=== PATIENT | male | born 1970 | race American Indian/Alaskan Native ===

== ENCOUNTER 2020-08-17 20:10 | Emergency (ER) | payer SELFPAY ==
[2020-08-18 00:34] VITALS: BP 142/83
== END 2020-08-18 03:00 | disposition left against medical advice (07) ==
LOC: ED 20:10
DX: Z04.1 Encounter for examination and observation following transport accident (principal); Z53.21 Procedure and treatment not carried out due to patient leaving prior to being seen by health care provider

== ENCOUNTER 2021-06-29 12:20 | Emergency (ER) | payer SELFPAY ==
[2021-06-29] MEDS ORDERED: ACETAMINOPHEN 325 MG TAB PO ONE (14:44)
[2021-06-29 14:57] VITALS: BP 139/84
--- NOTE | 2021-06-29 14:59 | Emergency Department Report ---
- General Chief Complaint: Weakness Stated Complaint: COLD SX Time Seen by Provider: 06/29/21 14:32 Source: patient Mode of arrival: Ambulatory Limitations: No Limitations - History of Present Illness Initial Comments: Patient is a 50-year-old male presents emergency room complaints of a cough that began 4 days ago. He states it is a persistent dry cough. He has associated shortness of breath, chest tightness, no appetite, generalized weakness, body aches. He denies any fever at home but does have a fever in the emergency room. He denies any vomiting, diarrhea, pleuritic pain, sore throat, ear pain, leg swelling. He has not been vaccinated for COVID-19. He has not been tested since becoming sick. No past medical history. Allergy to penicillin. He is a never smoker. He denies any known sick contacts or recent travel. - Related Data Previous Rx's Medication Instructions Recorded Last Taken Type Azithromycin [Zithromax TAB] 250 mg PO QDAY 5 Days #6 tablet 06/29/21 Unknown Rx Benzonatate [Tessalon Perles] 100 mg PO Q8HR PRN #12 capsule 06/29/21 Unknown Rx Dexamethasone 6 mg PO DAILY 10 Days #10 tab 06/29/21 Unknown Rx Allergies Allergy/AdvReac Type Severity Reaction Status Date / Time Penicillins Allergy Anaphylaxis Verified 06/29/21 12:39 ED Review of Systems ROS: Stated complaint: COLD SX Other details as noted in HPI Comment: All other systems reviewed and negative ED Past Medical Hx - Social History Smoking Status: Never Smoker Substance Use Type: None - Medications Home Medications: Home Medications Medication Instructions Recorded Confirmed Last Taken Type Azithromycin [Zithromax TAB] 250 mg PO QDAY 5 Days #6 tablet 06/29/21 Unknown Rx Benzonatate [Tessalon Perles] 100 mg PO Q8HR PRN #12 capsule 06/29/21 Unknown Rx Dexamethasone 6 mg PO DAILY 10 Days #10 tab 06/29/21 Unknown Rx ED Physical Exam - General Limitations: No Limitations General appearance: alert, in no apparent distress - Head Head exam: Present: atraumatic, normocephalic - Eye Eye exam: Present: normal appearance - ENT ENT exam: Present: mucous membranes moist - Respiratory Respiratory exam: Present: normal lung sounds bilaterally. Absent: respiratory distress, wheezes, rales, rhonchi, stridor, chest wall tenderness, accessory muscle use, decreased breath sounds, prolonged expiratory - Cardiovascular Cardiovascular Exam: Present: normal rhythm, tachycardia, normal heart sounds. Absent: systolic murmur, diastolic murmur, rubs, gallop - Neurological Exam Neurological exam: Present: alert, oriented X3 - Psychiatric Psychiatric exam: Present: normal affect, normal mood - Skin Skin exam: Present: warm, dry, intact ED Course Vital Signs 06/29/21 06/29/21 06/29/21 12:29 14:55 16:40 Temperature 100.0 F H 97.9 F Pulse Rate 123 H 98 H 124 H Respiratory 19 14 Rate Blood Pressure 144/90 Blood Pressure 139/84 [Right] O2 Sat by Pulse 95 96 95 Oximetry ED Medical Decision Making - Lab Data Result diagrams: 06/29/21 15:09 06/29/21 15:09 Lab Results 06/29/21 06/29/21 Range/Units 15:09 15:09 WBC 10.5 (4.5-11.0) K/mm3 RBC 5.15 H (3.65-5.03) M/mm3 Hgb 16.2 H (11.8-15.2) gm/dl Hct 46.5 H (35.5-45.6) % MCV 90 (84-94) fl MCH 31 (28-32) pg MCHC 35 H (32-34) % RDW 13.2 (13.2-15.2) % Plt Count 241 (140-440) K/mm3 Lymph % (Auto) 10.3 L (13.4-35.0) % [place] % (Auto) 6.8 (0.0-7.3) % Eos % (Auto) 0.0 (0.0-4.3) % Baso % (Auto) 0.3 (0.0-1.8) % Lymph # (Auto) 1.1 L (1.2-5.4) K/mm3 [place] # (Auto) 0.7 (0.0-0.8) K/mm3 Eos # (Auto) 0.0 (0.0-0.4) K/mm3 Baso # (Auto) 0.0 (0.0-0.1) K/mm3 Seg Neutrophils % 82.6 H (40.0-70.0) % Seg Neutrophils # 8.6 H (1.8-7.7) K/mm3 Sodium 136 L (137-145) mmol/L Potassium 3.6 (3.6-5.0) mmol/L Chloride 94.8 L (98-107) mmol/L Carbon Dioxide 23 (22-30) mmol/L Anion Gap 22 mmol/L BUN 10 (9-20) mg/dL Creatinine 1.1 (0.8-1.3) mg/dL Estimated GFR > 60 ml/min BUN/Creatinine Ratio 9 % Glucose 160 H (75-100) mg/dL Calcium 9.5 (8.4-10.2) mg/dL Total Bilirubin 0.40 (0.1-1.2) mg/dL AST 45 H (5-40) units/L ALT 51 (7-56) units/L Alkaline Phosphatase 65 (35-129) units/L Total Protein 9.3 H (6.3-8.2) g/dL Albumin 4.7 (3.9-5) g/dL Albumin/Globulin Ratio 1.0 % Vital Signs 06/29/21 06/29/21 06/29/21 12:29 14:55 16:40 Temperature 100.0 F H 97.9 F Pulse Rate 123 H 98 H 124 H Respiratory 19 14 Rate Blood Pressure 144/90 Blood Pressure 139/84 [Right] O2 Sat by Pulse 95 96 95 Oximetry - Radiology Data Radiology results: report reviewed Ordering Physician: KELLEN MURGUIA Date of Service: 06/29/21 Procedure(s): XR chest routine 2V Accession Number(s): [id number] cc: KELLEN MURGUIA Fluoro Time In Minutes: CHEST 2 VIEWS INDICATION / CLINICAL INFORMATION: Fever and shortness of breath. COMPARISON: None available. FINDINGS: SUPPORT DEVICES: None. HEART / MEDIASTINUM: No significant abnormality. LUNGS / PLEURA: There are moderate patchy bilateral pulmonary opacities. ADDITIONAL FINDINGS: No significant additional findings. IMPRESSION: 1. Moderate patchy bilateral opacities likely indicating multifocal pneumonia. Signer Name: Vick Cornell MD Signed: 06/29/2021 3:15 PM Workstation Name: [id number] Transcribed By: ROBERT Dictated By: Vick Cornell MD Electronically Authenticated By: Vick Cornell MD Signed Date/Time: 06/29/21 2279 DD/ 1515 TD/TT: - Medical Decision Making Patient is a 50-year-old male presents emergency room complaints of a cough that began 4 days ago. He states it is a persistent dry cough. He has associated shortness of breath, chest tightness, no appetite, generalized weakness, body aches. He denies any fever at home but does have a fever in the emergency room. He denies any vomiting, diarrhea, pleuritic pain, sore throat, ear pain, leg swelling. He has not been vaccinated for COVID-19. He has not been tested since becoming sick. No past medical history. Allergy to penicillin. He is a never smoker. He denies any known sick contacts or recent travel. Vitals with low-grade fever and tachycardia which improved upon repeat. Patient was ambulated in the emergency department for 2 minutes and was able to maintain oxygen saturation of 95% or greater on room air. Labs are stable. Chest x-ray: 1. Moderate patchy bilateral opacities likely indicating multifocal pneumonia. Bilateral opacities could be related to COVID-19 pneumonia, discussed the importance of outpatient follow-up, discussed return precautions, discussed self quarantine, discussed outpatient testing. Patient does not meet hospital criteria for admission at this time. Patient given prescription for medication. Advised patient Please take medication as prescribed. Please increase your fluid intake over the next several days. May take Tylenol as needed for fever or body aches. Follow-up with a primary care doctor for reexamination. Return to emergency room immediately for any new or worsening symptoms including but not limited to difficulty breathing, shortness of breath, severe chest pain, unable to tolerate by mouth intake, etc. Please self quarantine for 10 days from the onset of your symptoms. Recommend for you to get COVID-19 testing. Recommend for you get a pulse oximetry meter [id number] and if your oxygen is going below 93% return to emergency room. Critical care attestation.: If time is entered above; I have spent that time in minutes in the direct care of this critically ill patient, excluding procedure time. ED Disposition Clinical Impression: Multifocal pneumonia, Suspected COVID-19 virus infection Disposition: HOME / SELF CARE / HOMELESS Is pt being admited?: No Does the pt Need Aspirin: No Condition: Stable Instructions: COVID-19, Community-Acquired Pneumonia, Adult, [id number], Bacterial Pneumonia (ED) Additional Instructions: Please take medication as prescribed. Please increase your fluid intake over the next several days. May take Tylenol as needed for fever or body aches. Follow-up with a primary care doctor for reexamination. Return to emergency room immediately for any new or worsening symptoms including but not limited to difficulty breathing, shortness of breath, severe chest pain, unable to tolerate by mouth intake, etc. Please self quarantine for 10 days from the onset of your symptoms. Recommend for you to get COVID-19 testing. Recommend for you get a pulse oximetry meter [id number] and if your oxygen is going below 93% return to emergency room. Prescriptions: Dexamethasone 6 mg PO DAILY 10 Days #10 tab Benzonatate [Tessalon Perles] 100 mg PO Q8HR PRN #12 capsule PRN Reason: cough Azithromycin [Zithromax TAB] 250 mg PO QDAY 5 Days #6 tablet Referrals: DANUTA COOPER MD [Staff Physician] - 2-3 Days [facility] [Provider Group] - 2-3 Days Time of Disposition: 15:54 Print Language: SPANISH
--- NOTE | 2021-06-29 15:19 | XRay Report ---
CHEST 2 VIEWS INDICATION / CLINICAL INFORMATION: Fever and shortness of breath. COMPARISON: None available. FINDINGS: SUPPORT DEVICES: None. HEART / MEDIASTINUM: No significant abnormality. LUNGS / PLEURA: There are moderate patchy bilateral pulmonary opacities. ADDITIONAL FINDINGS: No significant additional findings. IMPRESSION: 1. Moderate patchy bilateral opacities likely indicating multifocal pneumonia. Signer Name: Vick Cornell MD Signed: 06/29/2021 3:15 PM Workstation Name: [id number]
[2021-06-29 15:41] LABS: Alanine Aminotransferase 51 units/L (7-56); Albumin 4.7 g/dL (3.9-5); BUN/Creatinine Ratio 9; Blood Urea Nitrogen 10 mg/dL (9-20); Calcium 9.5 mg/dL (8.4-10.2); Hemolysis Index 6
[2021-06-29 15:47] LABS: Basophils % (Auto) 0.3 % (0.0-1.8); Hematocrit 46.5 % (35.5-45.6); Hemoglobin 16.2 gm/dl (11.8-15.2); Lymphocytes # (Auto) 1.1 K/mm3 (1.2-5.4); Lymphocytes % (Auto) 10.3 % (13.4-35.0); Mean Corpuscular HGB Conc 35 % (32-34); Mean Corpuscular Volume 90 fl (84-94); Monocytes # (Auto) 0.7 K/mm3 (0.0-0.8); Monocytes % (Auto) 6.8 % (0.0-7.3); Platelet Count 241 K/mm3 (140-440); Red Blood Count 5.15 M/mm3 (3.65-5.03); Red Cell Distribution Width 13.2 % (13.2-15.2)
== END 2021-06-29 16:40 | disposition home or self-care (01) ==
LOC: ED 12:20
DX: J18.9 Pneumonia, unspecified organism (principal); Z20.822 Contact with and (suspected) exposure to COVID-19; Z79.899 Other long term (current) drug therapy; Z88.0 Allergy status to penicillin
CPT/HCPCS: 36415; 71046; 80053; 85025; 99283